=== PATIENT | male | born 1985 | race American Indian/Alaskan Native ===

== ENCOUNTER 2021-04-27 10:02 | Emergency (ER) | payer SELFPAY ==
[2021-04-27 10:31] VITALS: BP 147/99
--- NOTE | 2021-04-27 12:54 | Emergency Department Report ---
- General Chief complaint: Animal Bite Stated complaint: TICK IN BACK Time Seen by Provider: 04/27/21 12:42 Source: patient Mode of arrival: Ambulatory Limitations: No Limitations - History of Present Illness Initial comments: Patient is a 35-year-old male presents emergency room with complaints of a tick bite to the left upper back which he noticed present there today. He states he has some mild body aches. He denies any fever, chills, nausea, vomiting, diarrhea. Has medical history of HIV and states that he is undetectable and his last CD4 count was 524 and he states he is taking his antivirals. No allergies to medications. - Related Data Previous Rx's Medication Instructions Recorded Last Taken Type Doxycycline Hyclate [Doxycycline 100 mg PO BID 7 Days #14 tab 04/27/21 Unknown Rx Hyclate TAB] Allergies Allergy/AdvReac Type Severity Reaction Status Date / Time No Known Allergies Allergy Unverified 04/27/21 10:26 Abscess Boil HPI - HPI Chief Complaint: Animal Bite Stated Complaint: TICK IN BACK Time Seen by Provider: 04/27/21 12:42 Home Medications: Previous Rx's Medication Instructions Recorded Last Taken Type Doxycycline Hyclate [Doxycycline 100 mg PO BID 7 Days #14 tab 04/27/21 Unknown Rx Hyclate TAB] Allergies/Adverse Reactions: Allergies Allergy/AdvReac Type Severity Reaction Status Date / Time No Known Allergies Allergy Unverified 04/27/21 10:26 ED Review of Systems ROS: Stated complaint: TICK IN BACK Other details as noted in HPI Comment: All other systems reviewed and negative ED Past Medical Hx - Past Medical History Previous Medical History?: No - Surgical History Past Surgical History?: Yes Additional Surgical History: Spinal surgery - Medications Home Medications: Home Medications Medication Instructions Recorded Confirmed Last Taken Type Doxycycline Hyclate [Doxycycline 100 mg PO BID 7 Days #14 tab 04/27/21 Unknown Rx Hyclate TAB] ED Physical Exam - General Limitations: No Limitations General appearance: alert, in no apparent distress - Head Head exam: Present: atraumatic, normocephalic - Eye Eye exam: Present: normal appearance - ENT ENT exam: Present: mucous membranes moist - Neurological Exam Neurological exam: Present: alert, oriented X3 - Psychiatric Psychiatric exam: Present: normal affect, normal mood - Skin Skin exam: Present: warm, dry, other (there is a tick still attached to the skin left upper back, no erythema, no increased warmth ) ED Course Vital Signs 04/27/21 10:28 Temperature 99.0 F Pulse Rate 74 Respiratory 18 Rate Blood Pressure 147/99 [Left] O2 Sat by Pulse 99 Oximetry - Procedure Description Procedures done: foreign body removal. verbal consent obtained by patient. fine forceps used for tick removal of the left upper back, tick removed completely and is still alive, no remains of tick in the skin, no complications, no bleeding ED Medical Decision Making - Medical Decision Making Patient is a 35-year-old male presents emergency room with complaints of a tick bite to the left upper back which he noticed present there today. He states he has some mild body aches. He denies any fever, chills, nausea, vomiting, diarrhea. Has medical history of HIV and states that he is undetectable and his last CD4 count was 524 and he states he is taking his antivirals. No allergies to medications. VSS. on exam: there is a tick still attached to the skin left upper back, no erythema, no increased warmth. tick removed per procedure note without any complications. Patient given prescription for doxycycline. Advised patient Please take medication as prescribed. Follow-up with your primary care doctor. Return to emergency room for any new or worsening symptoms. Critical care attestation.: If time is entered above; I have spent that time in minutes in the direct care of this critically ill patient, excluding procedure time. ED Disposition Clinical Impression: Tick bite Qualifiers: Encounter type: initial encounter Site of tick bite: thoracic wall Front or back of thoracic wall: back Thoracic wall location detail: left Qualified Code(s): S20.462A - Insect bite (nonvenomous) of left back wall of thorax, initial encounter Disposition: DC-01 TO HOME OR SELFCARE Is pt being admited?: No Does the pt Need Aspirin: No Condition: Stable Instructions: Tick Bite Information, Adult Additional Instructions: Please take medication as prescribed. Follow-up with your primary care doctor. Return to emergency room for any new or worsening symptoms. Prescriptions: Doxycycline Hyclate [Doxycycline Hyclate TAB] 100 mg PO BID 7 Days #14 tab Referrals: your, primary care doctor [Other] - 2-3 Days Time of Disposition: 12:55 Print Language: JAPANESE
== END 2021-04-27 13:15 | disposition home or self-care (01) ==
LOC: ED 10:02
DX: S20.462A Insect bite (nonvenomous) of left back wall of thorax, initial encounter (principal); Z98.890 Other specified postprocedural states; Z79.899 Other long term (current) drug therapy; W57.XXXA Bitten or stung by nonvenomous insect and other nonvenomous arthropods, initial encounter; Y92.89 Other specified places as the place of occurrence of the external cause; Y93.89 Activity, other specified; Y99.8 Other external cause status